=== PATIENT | female | born 2000 | race African-American/Black ===

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

== ENCOUNTER 2019-05-24 04:19 | Emergency (ER) | payer SELFPAY ==
[2019-05-24] MEDS ORDERED: Proparacaine 0.5% Opth 15 ML BOT ONE (04:31)
[2019-05-24] MEDS ORDERED: Fluorescein Opthalmic Strip ONE (04:31)
== END 2019-05-24 05:02 | disposition home or self-care (01) ==
LOC: ERS 04:19
DX: H10.9 Unspecified conjunctivitis (principal); J45.909 Unspecified asthma, uncomplicated
CPT/HCPCS: 99283

== ENCOUNTER 2019-05-27 00:51 | Emergency (ER) | payer SELFPAY ==
[2019-05-27] MEDS ORDERED: Proparacaine 0.5% Opth 15 ML BOT ONE (01:03)
[2019-05-27] MEDS ORDERED: Fluorescein Opthalmic Strip ONE (01:03)
[2019-05-27] MEDS ORDERED: Gentamicin Ophth Soln 0.3% 5 ml Bottle ONE (01:18)
== END 2019-05-27 01:34 | disposition home or self-care (01) ==
LOC: SCSER 00:51
DX: H10.9 Unspecified conjunctivitis (principal)
CPT/HCPCS: 99282